=== PATIENT | female | born 1990 | race Caucasian/White ===

== ENCOUNTER → 2023-06-27 | Outpatient (CLI) | payer MEDICARE | LOC: M PAIN 13:00 | PROVIDERS: ATTEND Nurse Practitioner Family | DX: M79.12 Myalgia of auxiliary muscles, head and neck (principal); G89.29 Other chronic pain; M79.18 Myalgia, other site; G80.9 Cerebral palsy, unspecified; Z79.899 Other long term (current) drug therapy; Z87.891 Personal history of nicotine dependence ==

== ENCOUNTER → 2023-08-06 | Outpatient (CLI) | payer MEDICARE, MEDICAID | LOC: M PAIN 17:00 | PROVIDERS: ATTEND Anesthesiology | DX: M79.10 Myalgia, unspecified site (principal); M54.50 Low back pain, unspecified; M41.9 Scoliosis, unspecified; G80.9 Cerebral palsy, unspecified; Z79.899 Other long term (current) drug therapy; Z87.891 Personal history of nicotine dependence ==

== ENCOUNTER → 2023-12-18 | Outpatient (CLI) | payer MEDICARE, MEDICAID ==
[~2023-12-18] MED LIST: TRIAMCINOLONE ACETONIDE SUSP 40MG/ML 1ML VIAL As Ordered ONE; diazePAM 5MG TABLET As Ordered ONE; oxyCODONE 5MG TAB As Ordered ONE
== END ==
LOC: M PAIN 16:00
PROVIDERS: ATTEND Anesthesiology
DX: M79.12 Myalgia of auxiliary muscles, head and neck (principal); G89.29 Other chronic pain; G80.9 Cerebral palsy, unspecified; Z87.891 Personal history of nicotine dependence; Z79.899 Other long term (current) drug therapy
CPT/HCPCS: 20553; J0665; J3301

== ENCOUNTER → 2024-02-10 | Outpatient (CLI) | payer MEDICARE, MEDICAID ==
[~2024-02-10] MED LIST changes: +CHOL125C5 PO; +FLON1SPR NARES; +IRBE75TA11 PO; +THERTAB52 PO; -TRIAMCINOLONE ACETONIDE SUSP 40MG/ML 1ML VIAL As Ordered ONE; +VENTAER INH; -diazePAM 5MG TABLET As Ordered ONE; -oxyCODONE 5MG TAB As Ordered ONE
== END ==
LOC: M PAIN 15:00
PROVIDERS: ATTEND Nurse Practitioner Family
DX: G89.29 Other chronic pain (principal); M79.18 Myalgia, other site; G80.9 Cerebral palsy, unspecified; M41.9 Scoliosis, unspecified; J45.909 Unspecified asthma, uncomplicated; D50.9 Iron deficiency anemia, unspecified; Z79.899 Other long term (current) drug therapy; Z87.891 Personal history of nicotine dependence

== ENCOUNTER → 2024-06-03 | Outpatient (CLI) | payer MEDICARE, MEDICAID | LOC: M PAIN 14:45 | PROVIDERS: ATTEND Nurse Practitioner Family | DX: M79.18 Myalgia, other site (principal); M54.2 Cervicalgia; G80.9 Cerebral palsy, unspecified; M41.9 Scoliosis, unspecified; J45.909 Unspecified asthma, uncomplicated; D50.9 Iron deficiency anemia, unspecified; Z79.899 Other long term (current) drug therapy ==